=== PATIENT | male | born 1980 | race Caucasian/White ===

== ENCOUNTER 2019-08-20 21:57 | Inpatient (IN) | payer OTHER ==
[2019-08-20 22:02] VITALS: BMI 39.2
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
[2019-08-20 23:15] LABS: BASO % 0.5 % (0-2.0); EOS % 2.5 % (0-4.5); HEMATOCRIT 35.8 % (35.4-49); HEMOGLOBIN 12.2 GM/dL (11.7-16.9); LYMPH % 15.1 % (8-40); MCH 30.5 pg (25.7-33.7); MEAN CELL VOLUME 89.7 fl (80-96); MONO % 8.5 % (3.8-10.2); NEUT % 73.4 % (42.8-82.8); PLATELET COUNT 147 K/MM3 (134-434); RBC 3.99 M/mm3 (4.00-5.60); RDW 14.8 % (11.9-15.9); WHITE BLOOD COUNT 7.6 K/mm3 (4.0-10.0)
[2019-08-20 23:21] LABS: INR 1.02 (0.83-1.09)
[2019-08-20 23:56] LABS: ALBUMIN 3.4 g/dl (3.4-5.0); BILIRUBIN,TOTAL 0.3 mg/dL (0.2-1); BLOOD UREA NITROGEN 16.7 mg/dL (7-18); CALCIUM 8.3 mg/dL (8.5-10.1); MAGNESIUM 2.3 mg/dL (1.8-2.4); TOT PROT 6.5 g/dl (6.4-8.2)
[2019-08-20] MEDS ORDERED: VANCOMYCIN 1,000 MG in DEXTROSE 5%-WATER - 250 ML IVPB ONE (23:58)
[2019-08-20] MEDS ORDERED: SODIUM CHLORIDE 0.9% 1000 ML INFUS.BAG IV ONE (23:58)
[2019-08-21] MEDS ORDERED: VANCOMYCIN 1 GRAM (PRE-DOCKED) 1,000 MG/250 ML BAG IVPB ONE (00:08)
[2019-08-21] MEDS ORDERED: ENOXAPARIN NA (PORCINE) 40 MG/0.4 ML DISP.SYRIN SQ ONE (00:18)
--- NOTE | 2019-08-21 00:18 | PDOC ---
History of Present Illness - General Chief Complaint: Wound Stated Complaint: WOUND CHECK Time Seen by Provider: 08/20/19 22:17 History Source: Patient Exam Limitations: No Limitations - History of Present Illness Initial Comments: 08/20/19 23:58 39M with a h/o a hypercoagulable disorder, not on AC, and bipolar schizoprenia, who presents to the ER with complaints of a worsening wound. The patient states that he's had this wound "for a while" but noticed that his leg was also swollen over an unknown period of time. He denies SI, HI but admits he has not taken any of his medications because he is nondomicile. Past History - Past Medical History Allergies/Adverse Reactions: Allergies Allergy/AdvReac Type Severity Reaction Status Date / Time No Known Allergies Allergy Verified 08/20/19 22:02 Home Medications: Ambulatory Orders NK [No Known Home Medication] 08/20/19 COPD: No - Immunization History Immunization Up to Date: Yes - Psycho Social/Smoking Cessation Hx Smoking History: Current every day smoker Number of Cigarettes Smoked Daily: 20 Information on smoking cessation initiated: No 'Breaking Loose' booklet given: 03/16/13 Hx Alcohol Use: No Drug/Substance Use Hx: Yes Substance Use Type: Alcohol, Marijuana Review of Systems - Review of Systems Able to Perform ROS?: Yes Is the patient limited Gambian proficient: No Constitutional: Yes: Chills. No: Fever HEENTM: No: Hearing Loss, Throat Pain Respiratory: No: Cough, Shortness of Breath Cardiac (ROS): No: Chest Pain, Lightheadedness ABD/GI: Yes: Nausea. No: Vomiting Musculoskeletal: Yes: Muscle Pain Integumentary: Yes: Rash Neurological: No: Headache, Numbness, Tingling, Weakness Psychiatric: Yes: Emotional Problems *Physical Exam - Vital Signs Last Vital Signs Temp Pulse Resp BP Pulse Ox 97 F L 86 18 136/81 98 08/20/19 22:00 08/20/19 22:00 08/20/19 22:00 08/20/19 22:00 08/20/19 22:00 - Physical Exam General Appearance: Yes: Nourished, Appropriately Dressed, Disheveled, Obese. No: Apparent Distress HEENT: positive: Normal Voice, Hearing Grossly Normal Respiratory/Chest: negative: Respiratory Distress, Accessory Muscle Use Gastrointestinal/Abdominal: positive: Soft, Distended. negative: Tender Musculoskeletal: negative: CVA Tenderness, CVA Tenderness (R), CVA Tenderness (L) Extremity: positive: Swelling, Calf Tenderness, Erythema, Other (RLE is warm to touch, edematous, and has 2cm circular wound on distal calf) Integumentary: positive: Swelling Neurologic: positive: Alert, Normal Mood/Affect ED Treatment Course - LABORATORY CBC & Chemistry Diagram: 08/20/19 23:00 08/20/19 23:00 - ADDITIONAL ORDERS Additional order review: Laboratory Results 08/20/19 08/20/19 23:00 23:00 PT with INR 12.00 INR 1.02 Sodium 141 Potassium 4.0 Chloride 108 H Carbon Dioxide 26 Anion Gap 6 L BUN 16.7 Creatinine 1.0 Est GFR (CKD-EPI)AfAm 107.87 Est GFR (CKD-EPI)NonAf 93.07 Random Glucose 105 Calcium 8.3 L Magnesium 2.3 Total Bilirubin 0.3 AST 29 ALT 26 Alkaline Phosphatase 94 Total Protein 6.5 Albumin 3.4 Lipase 331 08/20/19 23:00 RBC 3.99 L MCV 89.7 MCHC 34.0 RDW 14.8 MPV 9.0 Neutrophils % 73.4 Lymphocytes % 15.1 D Monocytes % 8.5 Eosinophils % 2.5 Basophils % 0.5 - RADIOLOGY Radiology Studies Ordered: Category Date Time Status DUPLEX VASCUL US-1 LEG [US] Stat Ultrasound 08/20/19 22:42 Ordered Medical Decision Making - Medical Decision Making 08/21/19 00:57 39M with a hypercoagulable state, not on AC, who presents with a worsening lower extremity wound which is cellulitic. US shows positive DVT. Cr normal, will give lovenox and admit for IV abx and wound evaluation. Microblogged for admission. 08/21/19 01:[address] Echevarria for admission. Discharge - Discharge Information Problems reviewed: Yes Clinical Impression/Diagnosis: Wound cellulitis DVT (deep venous thrombosis) Qualifiers: DVT location: lower extremity Affected thrombotic vein of extremity: other lower extremity vein Chronicity: unspecified Laterality: right Qualified Code(s): I82.491 - Acute embolism and thrombosis of other specified deep vein of right lower extremity Condition: Guarded - Admission Yes - Follow up/Referral - Patient Discharge Instructions - Post Discharge Activity
[2019-08-21] MEDS ORDERED: AMPICILLIN NA/SULBACTAM NA 3 GM in SODIUM CHLORIDE 100 ML IVPB ONE (00:19)
[2019-08-21] MEDS ORDERED: ENOXAPARIN 100 MG, ENOXAPARIN 30 MG SQ ONE (00:45)
--- NOTE | 2019-08-21 01:06 | PN ---
Teaching Attending Note Name of Resident: Estrada Cintron ATTENDING PHYSICIAN STATEMENT I saw and evaluated the patient. I reviewed the resident's note and discussed the case with the resident. I agree with the resident's findings and plan as documented. SUBJECTIVE: Patient is a 39 year old undomiciled man with a PMH of Tobacco use, Hyperco agulabe disorder (used to be on coumadin), ?DVT, Obesity and Bipolar schizophrenia who presents to the ER with complaints of a worsening RLE wound. The patient states that he's had this wound "for a while" but noticed that his leg was also swollen over an unknown period of time. He denies suicidal or homicidal ideations. Admits he has not taken any of his medications because he is nondomiciled. Denies fever, chills, nausea, vomiting, chest pain, abdominal pain, SOB, dysuria or diarrhea. Denies alcohol or illicit drug use. No sick contacts or recent travels. Family history is unremarkable. OBJECTIVE: Alert Vital Signs Period Temp Pulse Resp BP Sys/Bray Pulse Ox Last 24 Hr 97 F 86 18 136/81 98 HEENT: No Jaundice, eye redness or discharge, PERRLA, EOMI. Normocephalic, a traumatic. External ears are normal and hearing is grossly intact. No nasal discharge. Neck: Supple, nontender. No palpable adenopathy or thyromegaly. No JVD Chest: Good effort. Clear to auscultation and percussion. Heart: Regular. No S3, rub or murmur Abdomen: Not distended, soft, nontender and no HSM. No rebound or guarding. Normal bowel sounds. Ext: Peripheral pulses intact. Wound on right medial malleolus. Right calf swelling. Skin: Warm and dry. No petechiae, rash or ecchymosis. Neuro: Alert. Oriented x3. CN 2-12 grossly intact. Sensation grossly intact in all four extremities and DTR are symmetric. Psych: Appropriate mood and affect. Good insight. Home Medications Medication Instructions Recorded NK [No Known Home Medication] 08/20/19 Abnormal Lab Results 08/20/19 08/20/19 23:00 23:00 RBC 3.99 L Chloride 108 H Anion Gap 6 L Calcium 8.3 L Current Medications Generic Name Dose Route Start Last Admin Trade Name Freq PRN Reason Stop Dose Admin Enoxaparin Sodium 130 mg 08/21/19 10:00 Lovenox - SQ BID EDILIA Clindamycin Phosphate 600 mg in 50 mls @ 100 mls/hr 08/21/19 12:00 Cleocin 600 Mg Premix Ivpb - IVPB Q8H-IV EDILIA Protocol ASSESSMENT AND PLAN: 1. RLE wound/cellulitis and DVT - Doppler scan showed "moderate nonocclusive thrombus from the common femoral vein to the posterior tibial vein." Started on Lovenox 130 mg SQ in the ER and also got IV Vancomycin, Unasyn and IV NS. Wound and blood cultures sent. Will provide daily wound care, treat with IV Clindamycin, consult ID, Wound care service and Podiatry. Get urinalysis, urine toxicology and CXR. Viral testing for COVID-19 ordered and patient placed on airborne, droplet and contact isolation. EKG shows NSR at 72/minute and QTc [address]-T wave changes. Consult tent worker for assistance with his living situation. Consult Hematology for management of Hypercoagulable state and also consult Psychiatry. Will continue comprehensive care for all of patients comorbid conditions. 2. Tobacco Use Counseled on risks associated with tobacco use. We will provide patient all the necessary assistance to facilitate smoking cessation and prescribe Nicotine patch. 3. Obesity Counseled on the risks associated with obesity. Will provide patient all the necessary assistance, counseling and positive reinforcement to facilitate weight loss. Consult roll clamp operator. 4. DVT prophylaxis - On full dose Lovenox for RLE DVT. 5. Advance directives - Full code
[2019-08-21] MEDS ORDERED: ENOXAPARIN NA (PORCINE) 100 MG/1 ML DISP.SYRIN SQ ONE ×2 (01:10→10:03)
--- NOTE | 2019-08-21 01:48 | HP ---
CHIEF COMPLAINT: wound and swelling on R leg PCP: none HISTORY OF PRESENT ILLNESS: Conrad Escobar is a 39 year old male with a past medical history of bipolar schizophrenia and an unknown hypercoaguable disorder for which he has been on coumadin in the past presenting for a RLE wound and swelling. The patient stated that he has had the wound for 1 week. Patient refused to answer any other questions. All other history as per ED history. Patient had swelling of the RLE for an unspecified amount of time. He is undomiciled. ER course was notable for: (1) Duplex of the RLE noting: Positive moderate nonocclusive thrombus from the common femoral vein to the posterior tibial vein (2) Given vancomycin, Unasyn, and NS Recent Travel: unknown PAST MEDICAL HISTORY: as above PAST SURGICAL HISTORY: unknown Social History: Smoking: unknown Alcohol: unknown Drugs: unknown Undomiciled. Allergies No Known Allergies Allergy (Verified 08/20/19 22:02) HOME MEDICATIONS: Home Medications Medication Instructions Recorded NK [No Known Home Medication] 08/20/19 REVIEW OF SYSTEMS Patient refused to answer questions about ROS. PHYSICAL EXAMINATION Vital Signs - 24 hr 08/20/19 22:00 Temperature 97 F L Pulse Rate 86 Respiratory 18 Rate Blood Pressure 136/81 O2 Sat by Pulse 98 Oximetry (%) Patient refused physical examination. As per ED note, patient with a 2.5cm wound on the distal RLE with surrounding erythema, swelling, and tenderness. Warm to the touch. Laboratory Results - last 24 hr 08/20/19 08/20/19 08/20/19 23:00 23:00 23:00 WBC 7.6 RBC 3.99 L Hgb 12.2 Hct 35.8 MCV 89.7 MCH 30.5 MCHC 34.0 RDW 14.8 Plt Count 147 MPV 9.0 Absolute Neuts (auto) 5.6 Neutrophils % 73.4 Lymphocytes % 15.1 D Monocytes % 8.5 Eosinophils % 2.5 Basophils % 0.5 Nucleated RBC % 0 PT with INR 12.00 INR 1.02 Sodium 141 Potassium 4.0 Chloride 108 H Carbon Dioxide 26 Anion Gap 6 L BUN 16.7 Creatinine 1.0 Est GFR (CKD-EPI)AfAm 107.87 Est GFR (CKD-EPI)NonAf 93.07 Random Glucose 105 Calcium 8.3 L Magnesium 2.3 Total Bilirubin 0.3 AST 29 ALT 26 Alkaline Phosphatase 94 Total Protein 6.5 Albumin 3.4 Lipase 331 EKG--> NSR, no ST segment changes, Qtc 440 ASSESSMENT/PLAN: Conrad Escobar is a 39 year old male with a past medical history of bipolar schizophrenia and an unknown hypercoaguable disorder admitted for cellulitis and DVT. Cellulitis - likely secondary to wound on the RLE - given vancomycin and Unasyn in ED - start clindamycin 600mg q8h - blood cultures pending - wound care consulted - ID consulted DVT - has a history of unknown hypercoaguable disorder with history of taking coumadin - duplex noting DVT - Lovenox 130mg (1mg/kg) bid - hypercoaguable workup including Factor V Leiden, Protein C+S, antithrombin, SOHAN - Heme consult Obesity - will advise for dietary consult upon discharge and healthy eating choices Bipolar Schizophrenia - not currently on medications - psychiatry consult FEN - no standing fluids - continue to monitor electrolytes and replete as necessary - Regular Diet Dispo - admit to Med-surg Family Medical History Family History: Unable to Obtain Visit type - Emergency Visit Emergency Visit: Yes ED Registration Date: 08/21/19 Care time: The patient presented to the Emergency Department on the above date and was hospitalized for further evaluation of their emergent condition. - New Patient This patient is new to me today: Yes Date on this admission: 08/21/19 - Critical Care Critical Care patient: No
[2019-08-21] MEDS ORDERED: CLINDAMYCIN 600MG PREMIX IVPB 600 MG/50 ML BAG IVPB SCH ×2 (08:00→12:00)
[2019-08-21 08:10] VITALS: BP 130/87; PULSE 65; TEMP 98.1
[2019-08-21 08:36] LABS: EPI CELLS 7 /uL (0-25.1); HYALINE CASTS 1 /uL (0-3.1); URINE APPEARANCE CLEAR; URINE BACTERIA 46 /uL (0-1359); URINE BILIRUBIN NEGATIVE (NEGATIVE); URINE COLOR YELLOW; URINE GLUCOSE (UA) NEGATIVE (NEGATIVE); URINE KETONE NEGATIVE (NEGATIVE); URINE LEUK ESTERASE TRACE (NEGATIVE); URINE NITRITE NEGATIVE (NEGATIVE); URINE PROTEIN NEGATIVE (NEGATIVE); URINE RBC 2 /uL (0-23.9); URINE WBC 14 /uL (0-25.8)
[2019-08-21 08:46] LABS: METHADONE, UR NEGATIVE ng/ml (CUTOFF=300); OPIATES, URI NEGATIVE ng/ml (CUTOFF=300); URINE BARBITURATES NEGATIVE ng/ml (CUTOFF=200); URINE BENZODIAZEPINES NEGATIVE ng/ml (CUTOFF=200)
[2019-08-21 08:57] LABS: URINE AMPHETAMINES NEGATIVE ng/ml (CUTOFF=500)
--- NOTE | 2019-08-21 09:04 | PN ---
Progress Note, Physician History of Present Illness: 39 Y/O M w/PMHx of DVT came in w/leg swelling. PATIENT LEFT FROM ED PRIOR TO BEING INTERVIEWED/EXAMINED AGAINST MEDICAL ADVICE - Current Medication List Current Medications: Active Medications Enoxaparin Sodium 100 mg/ (Enoxaparin Sodium 30 mg) 130 mg SQ BID EDILIA Clindamycin Phosphate (Cleocin 600 Mg Premix Ivpb -) 600 mg in 50 mls @ 100 mls/hr IVPB Q8H-IV EDILIA; Protocol - Objective Vital Signs: Vital Signs Temperature 98.1 F 08/21/19 08:05 Pulse Rate 65 08/21/19 08:05 Respiratory Rate 18 08/21/19 08:05 Blood Pressure 130/87 08/21/19 08:05 O2 Sat by Pulse Oximetry (%) 98 08/21/19 08:05 Labs: CBC, BMP 08/20/19 23:00 08/20/19 23:00 INR, PTT INR 1.02 (0.83-1.09) 08/20/19 23:00 Visit type - Emergency Visit Emergency Visit: Yes ED Registration Date: 08/21/19 Care time: The patient presented to the Emergency Department on the above date and was hospitalized for further evaluation of their emergent condition. - New Patient This patient is new to me today: Yes Date on this admission: 08/21/19 - Critical Care Critical Care patient: No - Discharge Referral Referred to [facility] Med P.C[facility] No
[2019-08-21 09:08] LABS: COCAINE, UR POSITIVE ng/ml (CUTOFF=300); PHENCYCLIDINE,URINE POSITIVE ng/ml (CUTOFF=25)
[2019-08-21] MEDS ORDERED: ENOXAPARIN NA (PORCINE) 120 MG/0.8 ML DISP.SYRIN SQ SCH (10:00)
[2019-08-21] MEDS ORDERED: ENOXAPARIN 100 MG, ENOXAPARIN 30 MG SQ SCH (10:00)
[2019-08-21] MEDS ORDERED: ENOXAPARIN NA (PORCINE) 30 MG/0.3 ML DISP.SYRIN SQ ONE (10:03)
[2019-08-21] MEDS ORDERED: CLINDAMYCIN 600MG PREMIX IVPB 600 MG/50 ML BAG IVPB ONE ×2 (12:02→12:05)
--- NOTE | 2019-08-21 17:07 | DS ---
Physical Exam: SUBJECTIVE: Patient seen and examined at the bedside, lying prone and refusing to answer questions or be examined, asking for a shower. OBJECTIVE: Vital Signs Period Temp Pulse Resp BP Sys/Bray Pulse Ox Last 24 Hr 97 F-98.1 F 65-86 18-18 130-136/81-87 98-98 PHYSICAL EXAM Refused exam GENERAL: AOx3 EXTREMITIES: small 2x2 cm ulcer visible on medial aspect of R ankle LABS Laboratory Results - last 24 hr 08/20/19 08/20/19 08/20/19 23:00 23:00 23:00 WBC 7.6 RBC 3.99 L Hgb 12.2 Hct 35.8 MCV 89.7 MCH 30.5 MCHC 34.0 RDW 14.8 Plt Count 147 MPV 9.0 Absolute Neuts (auto) 5.6 Neutrophils % 73.4 Lymphocytes % 15.1 D Monocytes % 8.5 Eosinophils % 2.5 Basophils % 0.5 Nucleated RBC % 0 PT with INR 12.00 INR 1.02 Sodium 141 Potassium 4.0 Chloride 108 H Carbon Dioxide 26 Anion Gap 6 L BUN 16.7 Creatinine 1.0 Est GFR (CKD-EPI)AfAm 107.87 Est GFR (CKD-EPI)NonAf 93.07 Random Glucose 105 Calcium 8.3 L Magnesium 2.3 Total Bilirubin 0.3 AST 29 ALT 26 Alkaline Phosphatase 94 Total Protein 6.5 Albumin 3.4 Lipase 331 Urine Color Urine Appearance Urine pH Ur Specific Ramsey Urine Protein Urine Glucose (UA) Urine Ketones Urine Blood Urine Nitrite Urine Bilirubin Urine Urobilinogen Ur Leukocyte Esterase Urine WBC (Auto) Urine RBC (Auto) Urine Casts (Auto) U Epithel Cells (Auto) Urine Bacteria (Auto) Opiates Screen Methadone Screen Barbiturate Screen Phencyclidine Screen Ur Amphetamines Screen MDMA (Ecstasy) Screen Benzodiazepines Screen Cocaine Screen U Marijuana (THC) Screen 08/21/19 08/21/19 08:05 08:05 WBC RBC Hgb Hct MCV MCH MCHC RDW Plt Count MPV Absolute Neuts (auto) Neutrophils % Lymphocytes % Monocytes % Eosinophils % Basophils % Nucleated RBC % PT with INR INR Sodium Potassium Chloride Carbon Dioxide Anion Gap BUN Creatinine Est GFR (CKD-EPI)AfAm Est GFR (CKD-EPI)NonAf Random Glucose Calcium Magnesium Total Bilirubin AST ALT Alkaline Phosphatase Total Protein Albumin Lipase Urine Color Yellow Urine Appearance Clear Urine pH 7.0 Ur Specific Ramsey 1.019 Urine Protein Negative Urine Glucose (UA) Negative Urine Ketones Negative Urine Blood Negative Urine Nitrite Negative Urine Bilirubin Negative Urine Urobilinogen 1.0 Ur Leukocyte Esterase Trace Urine WBC (Auto) 14 Urine RBC (Auto) 2 Urine Casts (Auto) 1 U Epithel Cells (Auto) 7 Urine Bacteria (Auto) 46 Opiates Screen Negative Methadone Screen Negative Barbiturate Screen Negative Phencyclidine Screen Positive A* Ur Amphetamines Screen Negative MDMA (Ecstasy) Screen Negative Benzodiazepines Screen Negative Cocaine Screen Positive A* U Marijuana (THC) Screen Negative HOSPITAL COURSE: Date of Admission:08/21/19 39 year old male PMH of bipolar schizophrenia and unknown hypercoaguable disorder (on warfarin) presented to the ER with RLE wound and swelling for the past 1 week. He refused multiple requests for examination, and repeatedly asked if he could shower and shave. He was found to have a DVT on Duplex, and was started on Lovenox 130mg BID. He was also given Unasyn, Vanc, and N/S in the ER, and was then started on Clinda 600mg Q8H for cellulitis. Blood and wound cultures were sent. WBC was wnl and he remained afebrile during his 14 hour stay. Psych was consulted for his history of schizophrenia. Pt eloped around noon and was unable to be signed out AMA. Date of Discharge: 08/21/19 Minutes to complete discharge: 32 Discharge Summary Problems reviewed: Yes Reason For Visit: WOUND CELLULITIS, DEEP VEIN THROMBOSIS (DVT) Condition: Guarded - Instructions Disposition: ELOPED - Home Medications Comprehensive Discharge Medication List: Ambulatory Orders NK [No Known Home Medication] 08/20/19 This patient is new to me today: No Emergency Visit: Yes ED Registration Date: 08/21/19 Care time: The patient presented to the Emergency Department on the above date and was hospitalized for further evaluation of their emergent condition. Critical Care patient: No - Discharge Referral Referred to [facility] Med P.C.: No ATTENDING PHYSICIAN STATEMENT I saw and evaluated the patient. I reviewed the resident's note and discussed the case with the resident. I agree with the resident's findings and plan as documented. SUBJECTIVE: OBJECTIVE: ASSESSMENT AND PLAN:
--- NOTE | 2019-08-21 22:39 | EKG ---
Test Reason : Blood Pressure : / mmHG Vent. Rate : 072 BPM Atrial Rate : 072 BPM P-R Int : 136 ms QRS Dur : 084 ms QT Int : 402 ms P-R-T Axes : 032 048 030 degrees QTc Int : 440 ms NORMAL SINUS RHYTHM NORMAL ECG WHEN COMPARED WITH ECG OF 08-OCT-2008 22:28, NO SIGNIFICANT CHANGE WAS FOUND Confirmed by NED DE SOUZA MD ([id number]) on 08/21/2019 10:39:08 PM Referred By: Confirmed By:NED DE SOUZA MD
== END 2019-08-21 12:15 | disposition left against medical advice (07) | DRG 661 ==
LOC: JER 21:57 → JERBED 08-21 01:13
PROVIDERS: ADMIT Internal Medicine; ATTEND Internal Medicine
DX: D68.59 Other primary thrombophilia (principal); I82.491 Acute embolism and thrombosis of other specified deep vein of right lower extremity; L03.115 Cellulitis of right lower limb; F17.210 Nicotine dependence, cigarettes, uncomplicated; E66.9 Obesity, unspecified; Z68.39 Body mass index [BMI] 39.0-39.9, adult; L97.318 Non-pressure chronic ulcer of right ankle with other specified severity; Z72.89 Other problems related to lifestyle; F12.90 Cannabis use, unspecified, uncomplicated; Z59.0 Homelessness; F31.89 Other bipolar disorder; F20.89 Other schizophrenia
CPT/HCPCS: 36415; 80053; 80307; 81003; 83690; 83735; 85025; 85610; 87040; 87070; 87186; 87205; 93005; 93010; 93971-TC; 99285-25; U0003